=== PATIENT | female | born 2000 | race Hispanic/Latino ===

== ENCOUNTER 2022-06-01 04:31 | Emergency (ER) | payer BC ==
--- NOTE | 2022-06-01 05:47 | Emergency Department Report ---
ED General Adult HPI - General Chief complaint: Urogenital-Female Stated complaint: URINARY RETENTION Time Seen by Provider: 06/01/22 05:35 Source: patient Mode of arrival: Ambulatory Limitations: No Limitations - History of Present Illness Initial comments: 21-year-old female presents emerged department seeking Galindo catheter implantation under the guidance of her endometriosis doctor. She states she had endometriosis procedure done with Dr. Opal Spaulding at [facility] pulses days ago and was advised to stay in town about 72 hours and to return self- reliant and she is always welcome she began to develop some issues with urination about 6 to 8 hours ago she was having extreme amount of pressure decreased urine production and some some difficulty urinating she was advised to come to emergency department by her surgeon to have a catheter placed and follow-up with him on Friday. Reports no fever, chills, sweats. No nausea, no vomiting hemoptysis no hematemesis hematochezia. No flank pain - Related Data Previous Rx's Medication Instructions Recorded Last Taken Type Nitrofurantoin Floyd/M-Cryst 100 mg PO Q12HR #14 capsule 06/01/22 Unknown Rx [Macrobid CAP] Allergies Allergy/AdvReac Type Severity Reaction Status Date / Time latex Allergy Itching Verified 06/01/22 04:38 ED Review of Systems ROS: Stated complaint: URINARY RETENTION Other details as noted in HPI Comment: All other systems reviewed and negative ED Past Medical Hx - Past Medical History Previous Medical History?: Yes Hx Hypertension: Yes - Surgical History Past Surgical History?: Yes Additional Surgical History: endometrosis - ex lap - Social History Smoking Status: Never Smoker Substance Use Type: None - Medications Home Medications: Home Medications Medication Instructions Recorded Confirmed Last Taken Type Nitrofurantoin Floyd/M-Cryst 100 mg PO Q12HR #14 capsule 06/01/22 Unknown Rx [Macrobid CAP] ED Physical Exam - General Limitations: No Limitations General appearance: alert, in no apparent distress - Head Head exam: Present: atraumatic, normocephalic - Eye Eye exam: Present: normal appearance, PERRL, EOMI Pupils: Present: normal accommodation - ENT ENT exam: Present: normal exam, normal orophraynx, mucous membranes moist, TM's normal bilaterally - Neck Neck exam: Present: normal inspection, full ROM, lymphadenopathy - Respiratory Respiratory exam: Present: normal lung sounds bilaterally. Absent: respiratory distress, wheezes, rales, accessory muscle use, decreased breath sounds, prolonged expiratory - Cardiovascular Cardiovascular Exam: Present: regular rate, normal rhythm. Absent: systolic murmur, diastolic murmur, rubs, gallop - GI/Abdominal GI/Abdominal exam: Present: soft, tenderness (Suprapubic region), normal bowel sounds - Extremities Exam Extremities exam: Present: normal inspection - Back Exam Back exam: Present: normal inspection - Neurological Exam Neurological exam: Present: alert, oriented X3 - Psychiatric Psychiatric exam: Present: normal affect, normal mood - Skin Skin exam: Present: warm, dry, intact, normal color. Absent: rash ED Course Vital Signs 06/01/22 04:39 Temperature 98.3 F Pulse Rate 81 Respiratory 18 Rate Blood Pressure 143/87 O2 Sat by Pulse 100 Oximetry ED Medical Decision Making - Medical Decision Making Of the Galindo was inserted to evacuate the bladder however the Galindo was found to have a latex covering patient has latex allergy so the Galindo was again removed started on antibiotics since advised to consult with her general surgeon surgeon/Dr. Hurtado for further follow-up Critical care attestation.: If time is entered above; I have spent that time in minutes in the direct care of this critically ill patient, excluding procedure time. ED Disposition Clinical Impression: Postoperative urinary retention Disposition: 01 HOME / SELF CARE / HOMELESS Is pt being admited?: No Does the pt Need Aspirin: No Condition: Stable Instructions: Acute Urinary Retention, Female, Urodynamic Testing, Acute Urinary Retention, Female, [id number] Prescriptions: Nitrofurantoin Floyd/M-Cryst [Macrobid CAP] 100 mg PO Q12HR #14 capsule Referrals: PRIMARY CARE, [Referring] - 3-5 Days (Please keep the appointment with your surgeon Dr. Hurtado [facility] on this FridayJune [facility] as he instructed)
[2022-06-01 06:49] LABS: Bacteria,Urine 1+ /HPF (Negative); Mucus,Urine FEW /HPF
[2022-06-01 06:57] LABS: Bilirubin,Urine Negative (Negative); Blood,Urine Large (Negative); Color,Urine Yellow (Yellow); Protein,Urine <30 mg dL mg/dL (Negative); Urobilinogen,Urine < 2.0 mg/dL (<2.0)
[2022-06-01 07:07] VITALS: BP 147/91
== END 2022-06-01 07:02 | disposition home or self-care (01) ==
LOC: ED 04:31
DX: N99.89 Other postprocedural complications and disorders of genitourinary system (principal); R33.9 Retention of urine, unspecified; I10 Essential (primary) hypertension; Z91.040 Latex allergy status; Z79.899 Other long term (current) drug therapy; Y84.6 Urinary catheterization as the cause of abnormal reaction of the patient, or of later complication, without mention of misadventure at the time of the procedure
CPT/HCPCS: 81001; 87076; 87086; 87186; 99283